=== PATIENT | male | born 1980 | race Caucasian/White ===

== ENCOUNTER 2018-03-27 21:34 | Emergency (ER) | payer OTHER, MEDICAID ==
[~2018-03-27] VITALS: Ht 182.9 cm; Wt 127.0 kg
[~2018-03-27 21:34] MED LIST: BACTRIM DS TAB1 EACH PO; IBUPROFEN 800800 M1 PO; KEFLEX500 M1 PO; NORCO 5-325 TA1 EACH PO
[2018-03-27] MEDS ORDERED: WELLBUTRIN XL150 MG (21:43)
[2018-03-27] MEDS ORDERED: CLONIDINE HCL0.3 M3 (21:43)
[2018-03-27] MEDS ORDERED: TRAMADOL 50 MG50 MG PO (22:31)
[2018-03-27 22:43] VITALS: BP 146/78
== END 2018-03-27 22:44 | disposition home or self-care (01) ==
LOC: M.ERS 21:34
DX: M79.672 Pain in left foot (principal); F17.210 Nicotine dependence, cigarettes, uncomplicated

== ENCOUNTER 2018-03-29 11:09 | Emergency (ER) | payer OTHER, MEDICAID ==
[~2018-03-29] VITALS: Ht 182.9 cm; Wt 127.0 kg
[~2018-03-29 11:09] MED LIST changes: +CLONIDINE HCL0.3 M3; +TRAMADOL 50 MG50 MG PO; +WELLBUTRIN XL150 MG
[2018-03-29] MEDS ORDERED: SUBOXONE 8 MG-1 EAC3 SUBLING (11:23)
[2018-03-29 12:12] VITALS: BP 150/91
== END 2018-03-29 12:13 | disposition home or self-care (01) ==
LOC: M.ERS 11:09
DX: Z71.1 Person with feared health complaint in whom no diagnosis is made (principal)